=== PATIENT | female | born 1990 | race Caucasian/White ===

== ENCOUNTER 2016-12-25 18:33 | Emergency (ER) | payer SELFPAY ==
[~2016-12-25] VITALS: Ht 154.9 cm; Wt 85.8 kg
[~2016-12-25 18:33] MED LIST: FRRS300 PO; MTR600X PO; PRENTAB26 PO
[2016-12-25 18:37] VITALS: BP 156/90; TEMP 37.1; Ht 154.9 cm; Wt 85.8 kg
[2016-12-25] MEDS ORDERED: IBUPROFEN 600 MG TAB PO STA (18:44)
[2016-12-25] MEDS ORDERED: HYDROCODONE/ACETAMOPHEN 5/325MG TAB PO STA (18:44)
--- NOTE | 2016-12-25 19:10 | DIAGNOSTIC IMAGING REPORT ---
LEFT FOREARM 2 VIEWS CLINICAL HISTORY: Mid forearm injury. FINDINGS: AP and lateral views of the left forearm are obtained. No prior studies are available for comparison at the time of dictation. The skeletal structures are well mineralized. No fracture is seen. The elbow and wrist joints are grossly maintained. Mild dorsal soft tissue edema is noted. IMPRESSION: Mild soft tissue edema with no fracture seen in the left forearm. Electronically signed by: Iker Lee M.D. 12/25/2016 7:09 PM Dictated Date/Time: 12/25/2016 7:08 PM
--- NOTE | 2016-12-25 19:16 | EMERGENCY ROOM VISIT NOTE ---
ED Visit Note First contact with patient: 18:39 CHIEF COMPLAINT: Left Forearm injury today HISTORY OF PRESENT ILLNESS: This 26-year-old female patient presents the ER with chief complaint of left forearm injury. The patient states that her shoes were wet and slipped down 2 steps and fell injuring her left forearm. There was no loss of consciousness. The patient denies any head injury. Her only concern is her left forearm. There is no numbness of the hand or weakness of the fingers. The pain is constant and moderate in severity. ROS:6 system review was performed and was negative unless stated otherwise in history of present illness. PMH: The patient is healthy; appendectomy, SVT SOCIAL HISTORY: Patient lives with her boyfriend. The patient denies any tobacco or alcohol use. PHYSICAL EXAM: Vital Signs: Were reviewed Reviewed Nurse's notes. GEN.: 26-year -old white female appears uncomfortable secondary to left forearm pain. MENTAL Status: Alert and oriented 3. LEFT FOREARM: No gross bony deformity noted. The patient is tender to palpation over the the mid forearm region. She has full range of motion of the elbow. Limited range of motion of the wrist secondary to mid forearm pain. She is able to move her fingers without difficulty. The skin is intact. Flexion and extension of the fingers is intact. The fingers are warm and well perfused. The patient is right-hand dominant. EMERGENCY DEPARTMENT COURSE: The patient was evaluated. The patient was given [place] 5/325 mg one tablet by mouth for pain and ibuprofen 600 mg by mouth for pain. X-ray of the left forearm was ordered and interpreted by the radiologist and myself. DIAGNOSTICS:LEFT FOREARM 2 VIEWS CLINICAL HISTORY: Mid forearm injury. FINDINGS: AP and lateral views of the left forearm are obtained. No prior studies are available for comparison at the time of dictation. The skeletal structures are well mineralized. No fracture is seen. The elbow and wrist joints are grossly maintained. Mild dorsal soft tissue edema is noted. IMPRESSION: Mild soft tissue edema with no fracture seen in the left forearm. Electronically signed by: Iker Lee M.D. 12/25/2016 7:09 PM Dictated Date/Time: 12/25/2016 7:08 PM The patient was informed of the findings. The patient was placed in an arm sling and discharged home in stable condition. DIAGNOSIS: Left forearm contusion DISCHARGE INSTRUCTIONS AND TREATMENT: Ice intermittently over the next 24 hours. Ibuprofen 600 mg every 6 hours with food for pain. Keep arm in sling until pain is tolerable without it. If symptoms persist or worsen, follow her family doctor. Problem List Medical Problems: (1) Paroxysmal supraventricular tachycardia Status: Chronic Current/Historical Medications Scheduled Ferrous Sulfate (Ferrous Sulfate), 325 MG PO DAILY Multivit/Min/Iron/Fol Ac/Pren ( Vitamin), 1 TAB PO DAILY Scheduled PRN Ibuprofen (Ibuprofen), 600 MG PO Q4H PRN for PAIN, COLÓN, CRAMPING OR FEVER Allergies Coded Allergies: No Known Allergies (Unverified , 12/25/16) Vital Signs Date Time Temp Pulse Resp B/P Pulse Ox O2 Delivery O2 Flow Rate FiO2 12/25/16 18:37 37.1 105 18 156/90 98 Room Air Medications Administered Medications (Trade) Dose Ordered Sig/Marianna Route Start Time Stop Time Status Last Admin Dose Admin Acetaminophen/ Hydrocodone Bitart ([place] 5/325 Tab) 1 tab NOW STAT PO 12/25/16 18:44 12/25/16 18:51 DC 12/25/16 18:57 1 TAB Ibuprofen (Motrin Tab) 600 mg NOW STAT PO 12/25/16 18:44 12/25/16 18:51 DC 12/25/16 18:57 600 MG Departure Information Patient Instructions [facility]
[2016-12-25 19:25] VITALS: PULSE 89; O2SAT 98
[2016-12-25] MEDS ORDERED: DPPRI400 INJ (21:51)
[2016-12-25] MEDS ORDERED: BUPR-79 PO (21:52)
[2016-12-25] MEDS ORDERED: MELO15TA4 PO (21:53)
[2016-12-25] MEDS ORDERED: PROP60CA5 PO (21:53)
== END 2016-12-25 19:27 | disposition home or self-care (01) ==
LOC: C.EDB 18:34 → C.EDD 19:27
DX: S50.12XA Contusion of left forearm, initial encounter (principal); W10.9XXA Fall (on) (from) unspecified stairs and steps, initial encounter

== ENCOUNTER 2017-07-04 20:59 | Emergency (ER) | payer OTHER ==
[~2017-07-04] VITALS: Ht 157.5 cm; Wt 88.5 kg
[~2017-07-04 20:59] MED LIST changes: +BUPR-79 PO; +DPPRI400 INJ; -FRRS300 PO; +MELO15TA4 PO; -MTR600X PO; -PRENTAB26 PO; +PROP60CA5 PO
[2017-07-04 21:05] VITALS: TEMP 36.7; Ht 157.5 cm; Wt 88.5 kg
[2017-07-04] MEDS ORDERED: BUPR150T5 PO (21:30)
[2017-07-04] MEDS ORDERED: BCPILLS PO (21:30)
[2017-07-04] MEDS ORDERED: INDSR/60 PO (21:30)
[2017-07-04] MEDS ORDERED: NAPR1TAB9 PO (21:30)
[2017-07-04] MEDS ORDERED: PROMETHAZINE HCL INJ 25 MG/ML 1 ML VIAL IM STA (21:47)
[2017-07-04] MEDS ORDERED: SUMATRIPTAN SUCCINATE 6 MG/0.5 ML VIAL SQ STA (21:47)
[2017-07-04] MEDS ORDERED: KETOROLAC TROMETHAMINE 60 MG/2 ML VIAL IM STA (21:47)
[2017-07-04 22:01] VITALS: BP 122/68; PULSE 75; O2SAT 99
--- NOTE | 2017-07-05 00:42 | EMERGENCY ROOM VISIT NOTE ---
History First contact with patient: 21:34 Chief Complaint: HEAD PAIN Stated Complaint: SEVERE MIRGRAINE History of Present Illness The patient is a 27 year old female who presents to the Emergency Room with complaints of migraine headache symptoms that have been worsening over the past one day. The patient has a history of migraine headaches, and she states that she will have 1 every few months. She usually does well with Imitrex at home, however she ran out of the medication and did not get it refilled. The patient does not have fever or chills. No numbness or paresthesias. This does feel similar to her normal back migraines and rates her discomfort a 9/10. This is not the worst headache of her life. Review of Systems More than 10 systems were reviewed and otherwise negative with the exception of history of present illness. Past Medical/Surgical History Medical Problems: (1) Paroxysmal supraventricular tachycardia Family History No pertinent family history Social History Smoking Status: Former Smoker Marital Status: single Occupation Status: employed Current/Historical Medications Scheduled Control Pills ( Control Pills), 1 TAB PO DAILY Bupropion Hcl (Bupropion Hcl Xl), 150 MG PO DAILY Propranolol Hcl (Propranolol ER), 60 MG PO DAILY Scheduled PRN Naproxen (Aleve), 220 MG PO UD PRN for Pain Physical Exam Vital Signs Date Time Temp Pulse Resp B/P (MAP) Pulse Ox O2 Delivery O2 Flow Rate FiO2 07/04/17 22:01 75 18 122/68 99 07/04/17 21:05 36.7 78 18 138/82 99 Room Air Pain Rating (0-10): 6.0 Physical Exam VITALS: Vitals are noted on the nurse's note and reviewed by myself. Vital signs stable. GENERAL: Well-developed, well-nourished, white female, who is in no acute distress and resting comfortably. Patient is cooperative with the examination. NECK: Supple without nuchal rigidity. No lymphadenopathy. No thyromegaly. Cervical spine is nontender. No meningismus HEART: Regular rate and rhythm without murmurs gallops or rubs. LUNGS: Clear to auscultation bilaterally without wheezes, rales or rhonchi. No retractions or accessory muscle use. ABDOMEN: Positive normal bowel sounds x 4. Soft, nontender, without masses or organomegaly. No guarding or rebound tenderness. MUSCULOSKELETAL: No muscle atrophy, erythema, or edema noted. Full range of motion without joint tenderness in all extremities. NEURO: Patient was alert and oriented to person place and time. CN II through XII grossly intact. Deep tendon reflexes 2+ throughout. Medical Decision & Procedures Medications Administered Medications (Trade) Dose Ordered Sig/Marianna Route Start Time Stop Time Status Last Admin Dose Admin Promethazine HCl (Phenergan Inj) 25 mg NOW STAT IM 07/04/17 21:47 07/04/17 21:48 DC 07/04/17 21:56 25 MG Ketorolac Tromethamine (Toradol Inj) 60 mg NOW STAT IM 07/04/17 21:47 07/04/17 21:48 DC 07/04/17 21:56 60 MG Sumatriptan Succinate (Imitrex Sq Inj) 6 mg NOW STAT SQ 07/04/17 21:47 07/04/17 21:48 DC 07/04/17 21:55 6 MG ED Course Physical exam and history were performed. Nursing notes, EMR, and Medication List were personally reviewed. Patient appears to have a headache for the past one day. Evidently this is similar to previous headaches. The patient does not appear toxic on examination and certainly does not have evidence of meningitis or encephalitis. I discussed options of care with the patient. She was given 60 mg IM Toradol and 25 mg IM Phenergan. The patient was also given 6 mg subcutaneous Imitrex. The patient was monitored for some time and did have significant improvement of her symptoms. She does appear well for discharge home. She was asked to follow with her primary care physician and was otherwise invited back to the ER with new, worsening, or concerning symptoms. The chart was completed utilizing [employer] Speech Voice Recognition Software. Grammatical errors, random word insertions, pronoun errors, and incomplete sentences are an occasional consequence of this system due to software limitations, ambient noise, and hardware issues. Any formal questions or concerns about the content, text, or information contained within the body of this dictation should be directly addressed to the provider for clarification. . Medical Decision The differential diagnosis includes, but is not limited to: acute intracranial bleed, meningitis, encephalitis, mass or mass effect, sinusitis, infection, tumor, headache, temporal arteritis and carbon monoxide exposure, and migraine. Impression Primary Impression: Headache Departure Information Dispostion Home / Self-Care Condition GOOD Forms HOME CARE DOCUMENTATION FORM, IMPORTANT VISIT INFORMATION Patient Instructions [facility] Additional Instructions You were seen and evaluated today on an emergency basis only. This is not a substitute for, or an effort to provide, complete comprehensive medical care. It is not possible to recognize and treat all injuries or illnesses in a single emergency department visit. For this reason it is recommended that you followup with your primary care physician or neurologist this week for ongoing care and evaluation. DO NOT drive, drink alcohol, operate machinery, or perform dangerous activities today. You were given medications in the ER that can affect your ability to safely function or operate a vehicle. Rest today in a quiet, peaceful, dark environment and get a full 8-10 hrs of sleep tonight. Avoid loud noises, smoke/smoking, alcohol, bright lights, stress, or physical exertion today to minimize the chance the headache may return. Continue current medications. Ibuprofen(Motrin, Advil) may be used for fever or pain. Use 600mg every six hours as needed. Take with food. Avoid using more than 2400mg in a 24 hour period. Do not use 2400mg per day for more than three consecutive days without physician direction. Prolonged inappropriate use can lead to stomach upset or ulcers. (AND/OR) Acetaminophen(Tylenol) may be used for fever or pain. Use 1000mg every six hours as needed. Avoid using more than 4000mg in a 24 hour period. Return to the ER for passing out, worsening headache, vision problems, neck stiffness/pain, fevers, vomiting, worsening of your condition, or as needed.
== END 2017-07-04 22:05 | disposition home or self-care (01) ==
LOC: C.EDB 21:02 → C.EDD 22:05
DX: R51 Headache (principal); I47.1 Supraventricular tachycardia; Z87.891 Personal history of nicotine dependence; Z79.3 Long term (current) use of hormonal contraceptives; Z79.899 Other long term (current) drug therapy

== ENCOUNTER 2018-03-09 15:00 | Emergency (ER) | payer OTHER ==
[~2018-03-09] VITALS: Ht 157.5 cm; Wt 88.3 kg
[2018-03-09 15:02] VITALS: Ht 157.5 cm; Wt 88.3 kg
--- NOTE | 2018-03-09 15:30 | EMERGENCY ROOM VISIT NOTE ---
History First contact with patient: 15:05 Chief Complaint: FOOT PAIN Stated Complaint: PAIN,TENDERNESS, TINGLING IN RIGHT FOOT INTO HEEL History of Present Illness The patient is a 27 year old female who presents to the Emergency Room with complaints of right foot pain. The patient states that she first heard a popping sensation in her foot 1 month ago when she was on the elliptical. She states that it was feeling better, until she got on the elliptical again 2 weeks ago and felt the same sensation. She also states that approximately 1.5 weeks ago, she slipped and hit her foot off of a wooden table. She has had gradually increasing pain since then. She states the pain is constant but worsens after walking or with activity. She reports a tingling sensation when sitting and states that her pain is a sharp, stabbing sensation which radiates into the calf. She rates her discomfort an 8/10. She denies any previous injuries to this foot, but does report a history of previous right ankle injuries. Review of Systems A 6 point review of systems was reviewed with the patient with pertinent positives and negatives as per history of present illness. All else were negative. Past Medical/Surgical History Medical Problems: (1) Paroxysmal supraventricular tachycardia Social History Smoking Status: Former Smoker Marital Status: single Occupation Status: employed Current/Historical Medications Scheduled Control Pills ( Control Pills), 1 TAB PO DAILY Bupropion Hcl (Bupropion Hcl Xl), 150 MG PO DAILY Meloxicam (Mobic), 15 MG PO DAILY Propranolol Hcl (Propranolol ER), 60 MG PO DAILY Scheduled PRN Naproxen (Aleve), 220 MG PO UD PRN for Pain Physical Exam Vital Signs Date Time Temp Pulse Resp B/P (MAP) Pulse Ox O2 Delivery O2 Flow Rate FiO2 03/09/18 16:10 36.9 70 17 166/95 100 03/09/18 15:02 36.9 70 17 166/95 100 Physical Exam VITALS: Vitals are noted on the nurse's note and reviewed by myself. Vital signs stable. GENERAL: This is a 27-year-old female, in no acute distress, nondiaphoretic, well-developed well-nourished. SKIN: There are no lacerations or abrasions. MUSCULOSKELETAL: No obvious edema of the right foot. There is tenderness to palpation to the lateral aspect of the right foot along the distal fifth metatarsal. No tenderness of the ankle or calf. Patient is able to move all toes. Dorsalis pedis pulse 2+. Capillary refill within 2 seconds. NEURO: Patient was alert and oriented to person place and time. Distal sensation intact. Medical Decision & Procedures ER Provider Diagnostic Interpretation: R FOOT MIN 3 VIEWS ROUTINE CLINICAL HISTORY: Right foot pain COMPARISON: None. DISCUSSION: No fractures or dislocations are visualized. There are no erosive or destructive changes. There is equivocal mild dorsal soft tissue swelling. There is a third metatarsal head bone island. IMPRESSION: No significant bony abnormalities identified. Medical Decision Differential diagnosis includes fracture, contusion, sprain, plantar fasciitis, arthritis, among others. The patient was evaluated as above. X-ray of the right foot was obtained and read by radiology with no acute findings. Patient was placed in a postoperative shoe. She was given information for orthopedic follow-up. Conservative measures were discussed with the patient. She verbalized understanding of my assessment and treatment plan and was discharged home in good condition. Medication Reconcilliation Current Medication List: was personally reviewed by me Blood Pressure Screening Patient's blood pressure: Elevated blood pressure Impression Primary Impression: Foot pain Departure Information Dispostion Home / Self-Care Condition GOOD Referrals Roberto Baron M.D. (PCP) Bran Mattson MD Patient Instructions [facility] Additional Instructions You have been treated in the Emergency Department for a foot injury. For pain control, you can use the following bwse-lth-caprqxr medicines (if >12 yo): - Regular strength (325mg/tab) Tylenol (acetaminophen) 2 tabs every 4-6 hours as needed. Do not exceed 12 tablets in a 24 hour period. Avoid taking more than 4 grams (4000 mg) of Tylenol per day. This includes any other sources of acetaminophen you may take on a regular basis. - Regular strength (200 mg/tab) Advil (ibuprofen) 1-2 tabs every 4-6 hours as needed. Do not exceed a dose of 3200 mg per day. If this is a recent injury (<24 hrs), ice can be applied to the area of pain for the first 3 days to help decrease pain and inflammation. Wear the postoperative shoe for the next 1-2 weeks or as needed for pain/ difficulty walking. Follow-up with orthopedics if you do not have improvement of your pain. Return to the Emergency Department if your current symptoms worsen despite treatment course outlined above, or if you develop any of the following symptoms : intractable pain despite aforementioned treatment course or new onset of numbness or tingling of the foot. Problem Qualifiers Primary Impression: Foot pain Laterality: right Qualified Codes: M79.671 - Pain in right foot
--- NOTE | 2018-03-09 15:42 | DIAGNOSTIC IMAGING REPORT ---
R FOOT MIN 3 VIEWS ROUTINE CLINICAL HISTORY: Right foot pain COMPARISON: None. DISCUSSION: No fractures or dislocations are visualized. There are no erosive or destructive changes. There is equivocal mild dorsal soft tissue swelling. There is a third metatarsal head bone island. IMPRESSION: No significant bony abnormalities identified. Electronically signed by: Chris Brown M.D. 03/09/2018 3:40 PM Dictated Date/Time: 03/09/2018 3:39 PM
[2018-03-09] MEDS ORDERED: MELO-84 PO (15:45)
[2018-03-09 16:10] VITALS: BP 166/95; PULSE 70; TEMP 36.9; O2SAT 100
[2018-03-09] MEDS ORDERED: NAPR1TAB9 PO (21:30)
[2018-03-09] MEDS ORDERED: INDSR/60 PO (21:30)
[2018-03-09] MEDS ORDERED: BCPILLS PO (21:30)
[2018-03-09] MEDS ORDERED: BUPR150T5 PO (21:30)
== END 2018-03-09 16:11 | disposition home or self-care (01) ==
LOC: C.EDB 15:01 → C.EDD 16:11
DX: M79.671 Pain in right foot (principal); Z87.891 Personal history of nicotine dependence

== ENCOUNTER 2025-04-14 21:47 | Inpatient (IN) ==
[2025-04-14] MEDS ORDERED: LIDOCAINE 1% LOCAL 20 ML VIAL INFIL PRN (22:41)
--- NOTE | 2025-04-14 22:46 | Obstetrical Progress Note ---
Date of Service April 14, 2025 Assessment & Plan (1) : Plan: Pt is a 34yo at 38 + weeks. Presents to labor and delivery with complaints of contractions since 8:00 PM. course is reviewed FHR ; CAT1 CTx; 2-4min VE; 3/50/-1 with bulging membranes Plan Admit and anticipate VD Results & Data Vital Signs (Past 12 Hours) Vital Signs Temp Pulse Resp BP 04/14/25 22:09 74 130/81 04/14/25 22:06 36.8 C 18
[2025-04-14 23:28] LABS: Hematocrit (blood only) 32.3 % (37.0-47.0); Hemoglobin 10.9 g/dl (12.0-16.0); Mean Corpuscular Hemoglobin 30.1 pg (25.0-34.0); Mean Corpuscular Hgb Conc 33.7 g/dL (32.0-36.0); Mean Corpuscular Volume 89.2 fL (80.0-100.0); Mean Platelet Volume 11.6 fL (9.4-12.4); Platelet Count 228 K/uL (130-400); RDW Standard Deviation 45.8 fL (36.4-46.3); Red Blood Count 3.62 M/uL (4.20-5.40); White Blood Count 10.99 K/ul (4.8-10.8)
[2025-04-14] MEDS: LACTATED RINGER'S 1,000 ML IV PRN (23:30)
[2025-04-14] MEDS ORDERED: ROPIVACAINE 0.5% PF 5 MG/ML 20 ML VIAL EPI PRN (23:40)
[2025-04-14] MEDS ORDERED: NALOXONE HCL 1 MG in SODIUM CHLORIDE 0.9% 1,000 ML IV PRN (23:40)
[2025-04-14] MEDS ORDERED: ONDANSETRON INJ 2 MG/ML 2 ML VIAL IV PRN (23:40)
[2025-04-14] MEDS ORDERED: LIDOCAINE 2% MPF LOCAL 5 ML VIAL EPI PRN (23:40)
[2025-04-14] MEDS ORDERED: BUPIVACAINE 0.25% PF 30 ML VIAL EPI PRN (23:40)
[2025-04-14] MEDS ORDERED: SODIUM CHLORIDE 0.9% PF INJ 10 ML VIAL EPI PRN (23:40)
[2025-04-14] MEDS ORDERED: NALOXONE HCL 0.4 MG/1 ML VIAL/CARP IV PRN (23:40)
[2025-04-14] MEDS ORDERED: NALBUPHINE HCL INJ 10 MG/ML AMP IV PRN (23:40)
[2025-04-14] MEDS ORDERED: ePHEDrine sulfate 50 MG/ML AMP IV PRN (23:40)
[2025-04-14] MEDS ORDERED: diphenhydrAMINE 50 MG/ML VIAL IV PRN (23:40)
[2025-04-14] MEDS ORDERED: fentaNYL citrate PF 100 MCG/2 ML VIAL EPI PRN (23:40)
--- NOTE | 2025-04-14 23:43 | Anesthesiology Consultation ---
Date of Service April 14, 2025 Assessment & Plan (1) Encounter for pre-operative examination: Chart Review Chart Review: Patient NOT seen in Pre Admission Testing and Acceptable Risk for Labor Epidural Consults Requested none History Height/Weight Height: 5 ft 2 in Weight: 91.172 kg Allergies Allergy/AdvReac Type Severity Reaction Status Date / Time No Known Allergies Allergy Unverified 02/02/25 09:22 Medications Home Medications Medication Instructions Recorded Confirmed Last Taken propranolol 120 mg capsule,24 120 mg PO DAILY 05/16/21 04/14/25 04/13/25 hr,extended release vit no.133-ferrous 1 tab PO HS 01/26/25 04/14/25 04/13/25 fumarate 28 mg-folic acid 800 mcg tablet () sertraline 100 mg tablet 100 mg PO HS 01/26/25 04/14/25 04/13/25 Social History Smoking Status: Never smoker Hx Alcohol Use: No Hx Substance Use: No Physical Exam Vital Signs Last Vital Signs Temp 98.2 F 04/14/25 22:06 Pulse 72 04/14/25 23:40 Resp 18 04/14/25 22:06 BP 130/81 04/14/25 22:09 Pulse Ox 97 04/14/25 23:40 Testing Laboratory Results 04/14/25 22:53
[2025-04-15] MEDS: LIDOCAINE 2%/EPINEPHRINE 1:200,000 20 ML PF EPI STA (00:05)
[2025-04-15] MEDS: BUPIVACAINE 0.25% PF 30 ML VIAL EPI STA (00:05)
[2025-04-15] MEDS: fentANYL 2 MCG/ML BUPIVacaine 0.125%-NSS 100ML BAG EPI PRN (00:06)
--- NOTE | 2025-04-15 01:29 | Obstetrical Progress Note ---
Date of Service April 15, 2025 Assessment & Plan (1) : Plan: Pt doing well Epidural analgesia in place FHR; CAT1 Ctx; 1-2 VE; 10/100/+1 AROM- clear Admission and Anticipated Discharge Date Admission Date: April 14, 2025 Results & Data Vital Signs (Past 12 Hours) Vital Signs Temp Pulse Resp BP Pulse Ox 04/15/25 01:25 78 96 04/15/25 01:20 90 163/88 H 96 04/15/25 01:17 83 94 04/15/25 01:15 89 97 04/15/25 01:10 83 97 04/15/25 01:05 88 131/82 96 04/15/25 01:00 79 96 04/15/25 00:59 88 94 04/15/25 00:55 84 95 04/15/25 00:51 68 141/78 H 04/15/25 00:50 86 95 04/15/25 00:45 82 94 04/15/25 00:44 85 94 04/15/25 00:40 76 95 04/15/25 00:35 72 137/84 97 04/15/25 00:30 77 95 04/15/25 00:25 79 18 96 04/15/25 00:20 77 18 96 04/15/25 00:17 71 146/85 H 04/15/25 00:15 36.8 C 75 18 148/84 H 97 04/15/25 00:13 75 139/74 04/15/25 00:11 78 136/74 04/15/25 00:10 70 18 96 04/15/25 00:09 70 137/71 04/15/25 00:07 64 144/82 H 04/15/25 00:05 69 18 145/79 H 96 04/15/25 00:00 70 97 04/14/25 23:55 97 04/14/25 23:55 81 04/14/25 23:50 97 04/14/25 23:50 76 04/14/25 23:45 99 04/14/25 23:45 74 04/14/25 23:40 97 04/14/25 23:40 72 04/14/25 23:35 98 04/14/25 23:35 67 04/14/25 22:09 74 130/81 04/14/25 22:06 36.8 C 18
[2025-04-15] MEDS: OXYTOCIN 30 UNITS/NSS 30 UNITS/500 ML BAG IV PRN (01:52)
[2025-04-15] MEDS: miSOPROStoL 200 MCG TAB ONE (01:58)
[2025-04-15] MEDS ORDERED: HYDROCORTISONE ACETATE 25 MG SUPP PR PRN (02:03)
[2025-04-15] MEDS ORDERED: bisacodyL 10 MG SUPP PR PRN (02:03)
[2025-04-15] MEDS ORDERED: OXYTOCIN 30 UNITS/NSS 30 UNITS/500 ML BAG IV PRN (02:03)
[2025-04-15] MEDS ORDERED: DIPHTHER/TETAN/PERTUS Vaccine (Tdap, Adol/Adult) 0.5mL IM ONE (02:03)
--- NOTE | 2025-04-15 02:06 | Delivery Summary ---
Vaginal Delivery Summary Date of Service April 15DELIVERY NOTE Patient delivered a live male in left occiput anterior presentation there was 1 nuchal cord which was easily reduced. was delivered and placed on mother's abdomen. Delayed cord clamping was performed. Cord blood is obtained Cord gasses are not obtained Meconium is absent Placenta is spontaneously delivered. Placenta appears grossly normal and has 3 vessel cord Inspection of the perineum showed a first degree midline laceration. Laceration is repaired in layers with 2-0 Vicryl Rectal exam post repair showed good sphincter tone no sutures palpated in the rectum. Quantitative blood loss is 100 cc per Infants weight and scores are in the pediatric record Mother and baby are stable in in the recovery
[2025-04-15] MEDS: fentaNYL citrate PF 100 MCG/2 ML VIAL ONE (02:45)
[2025-04-15] MEDS: ePHEDrine sulfate 50 MG/ML AMP ONE (02:45)
[2025-04-15] MEDS: SODIUM CHLORIDE 0.9% PF INJ 10 ML VIAL ONE (02:46)
[2025-04-15] MEDS: fentaNYL citrate PF 100 MCG/2 ML VIAL EPI STA (02:46)
[2025-04-15] MEDS: LIDOCAINE 2%/EPINEPHRINE 1:200,000 20 ML PF ONE (02:46)
[2025-04-15] MEDS: BUPIVACAINE 0.25% PF 30 ML VIAL ONE (02:46)
[2025-04-15] MEDS: fentANYL 2 MCG/ML BUPIVacaine 0.125%-NSS 100ML BAG ONE (02:46)
[2025-04-15] MEDS: SODIUM CHLORIDE 0.9% PF INJ 10 ML VIAL EPI STA (02:47)
[2025-04-15] MEDS: miSOPROStoL 200 MCG TAB PR ONE (07:23)
[2025-04-15] MEDS: BENZOCAINE 20% SPRY 85 APPLN/85 GM CAN EXT PRN (08:23)
[2025-04-15] MEDS: PRENATAL VITAMIN 1 TAB PO SCH (08:24)
[2025-04-15] MEDS: DOCUSATE SODIUM 100 MG CAP PO SCH (08:24)
[2025-04-15] MEDS: ACETAMINOPHEN 325 MG TAB PO PRN (13:43)
[2025-04-15] MEDS: IBUPROFEN 600 MG TAB PO PRN (13:43)
[2025-04-15] MEDS: PROPRANOLOL HCL 60 MG LA CAP PO SCH (21:15)
[2025-04-15] MEDS: SERTRALINE HCL 100 MG TABLET PO SCH (21:15)
[2025-04-16 00:34] VITALS: RESP 16
[2025-04-16 06:27] LABS: Hemoglobin 10.7 g/dl (12.0-16.0); Mean Corpuscular Hemoglobin 28.8 pg (25.0-34.0); Mean Corpuscular Hgb Conc 31.5 g/dL (32.0-36.0); Mean Corpuscular Volume 91.6 fL (80.0-100.0); Platelet Count 204 K/uL (130-400); Red Blood Count 3.71 M/uL (4.20-5.40); White Blood Count 10.74 K/ul (4.8-10.8)
[2025-04-16 08:10] VITALS: BP 131/88; PULSE 61; TEMP 98.4; O2SAT 100
--- NOTE | 2025-04-16 09:00 | Obstetrical Progress Note ---
Date of Service April 16, 2025 Assessment & Plan (1) Normal course: Plan continue routine course Regular diet encourage ambulation discharge plan for tomorrow Admission and Anticipated Discharge Date Admission Date: April 14, 2025 Review of Systems Review of Systems: All systems reviewed & are unremarkable except as noted in HPI & below Constitutional: as per Subjective / HPI Respiratory: as per Subjective / HPI Cardiovascular: as per Subjective / HPI Gastrointestinal: as per Subjective / HPI Physical Exam Constitutional: WD/WN, vitals as above Respiratory: normal respiratory effort, lungs clear to auscultation Cardiovascular: RRR, no murmur, no edema Gastrointestinal (Abdomen): normal bowel sounds, soft, nontender, no hepatosplenomegaly Skin: no rashes, warm and dry Psychiatric: A+Ox3, euthymic affect Genitourinary: pelvic exam; Deferred Results & Data Vital Signs (Past 12 Hours) Vital Signs Temp Pulse Resp BP Pulse Ox O2 Del Method 04/16/25 08:02 36.9 C 61 16 131/88 100 Room Air 04/16/25 03:40 36.5 C 67 16 125/84 97 Room Air 04/16/25 00:15 36.6 C 61 16 126/81 97 Room Air 04/15/25 21:00 36.5 C 67 18 124/86 98 Room Air
--- NOTE | 2025-04-16 09:45 | Discharge Summary ---
Date of Service April 16, 2025 Hospital Course (1) Vaginal delivery: Plan Discharge home instructions reviewed Continue Feso4, Vitamins follow up in 3 weeks and 6 weeks for visit Discharge Instructions ACTIVITY RECOMMENDATIONS: * Gradual return to full activity over the next 2-3 weeks. * No lifting - nothing heavier than baby over the next 2-3 weeks. * Do not engage in vigorous exercise, sexual activity or sports until cleared by your physician. * Do not drive or operate any motorized equipment until cleared by your physician. * You may shower/bathe daily. BREAST CARE: If you are not breast feeding: * Wear a supportive bra 24 hours a day for one to two weeks. * Avoid stimulating your breasts and nipples as much as possible during the first few weeks after delivery. * When taking a shower, have the warm water hit your back, not breasts. * When your breasts feel full, apply ice packs. Usually three to four times a day helps ease the discomfort. * Take a mild pain medication (Tylenol/Motrin) when you are uncomfortable. If breast feeding: * Use breast milk to lubricate nipples. Lansinoh cream may be used for sore nipples. You do not need to remove cream prior to breast feeding. If using a different brand of cream, check the label for directions regarding removal of cream prior to nursing. * Wear a supportive bra. * If having problems with breasts or breast feeding, call a qa consultant or your health care provider. EPISIOTOMY CARE: After delivery, if you have an episiotomy (stitches), the following steps will ease discomfort and aid healing. * For the first 24 hours after delivery, place ice packs next to your episiotomy to help reduce swelling. * After the first 24 hour-period, sitz baths, either portable or in the tub, are suggested. A shower with a shower arm sprayed over the episiotomy may be comforting. * Ash[place] care should be done after each voiding and bowel movement. Squirt warm water from a plastic bottle over the perineum (region of the body between the anus and urinary opening) and pat dry. * Use Dermoplast to ease discomfort. Shake container. Blossom directly over the episiotomy. * Place a Tucks on a clean sanitary pad next to your episiotomy. OVER THE COUNTER MEDICATION: * For discomfort or pain, you may use Acetaminophen (Tylenol), Ibuprofen (Advil), or Naproxen (Aleve) following the package directions. * For constipation you may use Colace following the package directions. SPECIAL CARE INSTRUCTIONS: When you are discharged from the hospital, it is important for you to follow the instructions listed below: * During the first week at home, you should be able to care for yourself and your baby. In addition, the usual light household activities are encouraged. * Limit your activities to the way you feel. Do not try to clean the house or move furniture. Be sensible. * If you actively engage in sports and have done so up until the time of your delivery, you may resume these activities as soon as you feel able. This may take up to one month or even longer. Use good judgment. * Continue to take your vitamins for at least six weeks after the of your baby. * Your diet need not be limited unless you were on a special diet before your delivery. Breast-feeding mothers need around 2500 calories per day and at least 64-80 ounces of fluid per day (8 to 10 glasses). * You should eat foods from the four major food groups. Crash diets or fad diets are to be avoided. Eating lean meats, fresh fruits and vegetables, low-fat dairy products, high fiber foods and a regular exercise program, will help you get back to your pre- weight without putting your health at risk. * Constipation is sometimes a problem after delivery. Take a mild laxative as needed. If breast feeding, Milk of Magnesia is acceptable to use. You may use a suppository or Fleets enema if no episiotomy. * A daily shower or tub bath is suggested. Be sure to thoroughly and gently dry the perineum. * A bloody vaginal discharge will usually continue until around four weeks post . A small amount of bleeding may continue for as long as six weeks. Vaginal discharge changes from the bright red bleeding after delivery to pink then brownish and finally yellowish-pink before becoming white and disappearing. * Bleeding may increase with activity. Your first period may come in 4-8 weeks. If you are breast feeding, your period may be delayed even longer. * [place] (sex) can begin whenever both you and your partner feel c omfortable and do not have any form of genital infection. It is recommended that you wait until after your return appointment and discuss with your physician. If you have questions, please talk to your health care practitioner. A condom should be used to prevent infection and . * Foreplay, gentle intercourse and lubrication is very important the first several times to prevent pain. A water-based lubricant such as K-Y jelly or Astroglide may be used. * Tampons may be used six weeks after delivery. * Douching should be avoided for 6 weeks after delivery. * If you have RH negative blood and your baby is RH positive, you will receive RHOGAM by injection prior to discharge. The nurse will give you a card to keep with you that has the date and place that you received RHOGAM after delivery. * During your care, you had a Rubella screen done to check for the presence of rubella antibodies in your blood. If your test was negative, you will receive a Rubella vaccine prior to discharge. This vaccine may cause a fever, soreness at the injection site and flu-like symptoms. If these symptoms persist, notify your health care practitioner. is not advised for three months after a Rubella vaccine. There is a higher chance of having a baby with defects if conceived within three months of getting the vaccine. * If you were discharged 24 hours from delivery or before 48 hours: Visiting nurses will come to your home 48 hours after discharge to assess you and your baby. The visiting nurse will meet with you while you are in the hospital to arrange a time and get directions to your home. * Verbalizes understanding of car seat law as reviewed with patient nursing. * Car Seat hand-out given and reviewed with patient by nursing. * Shaken baby information reviewed with patient by nursing. Call you doctor if: * Heavy bleeding (saturating several pads an hour) or passing clots the size of your fist. * A fever >101 degrees F (38.3 degrees C) on two occasions four hours apart and/or chills. * Unusual pain in the pelvic or vaginal areas. * "Baby Blues" lasting longer than two weeks. If you have any questions or concerns, call your health care practitioner at . FOLLOW-UP VISIT: * Please call the office at to schedule 3 and 6 week examination. It is important you keep this appointment. * It is important for you to make arrangements for either yearly or twice yearly check-ups thereafter.
[2025-04-16] MEDS ORDERED: bisacodyL 5 MG TABEC PO SCH (20:00)
--- NOTE | 2025-04-18 07:06 | Anesthesia Procedure Note ---
Date of Service April 16, 2025 Anesthesia Post Epidural Note Vital Signs Vital Signs: Temp Pulse Resp BP Pulse Ox O2 Del Method 98.4 F 61 16 131/88 100 Room Air 04/16/25 12:07 04/16/25 12:07 04/16/25 12:07 04/16/25 12:07 04/16/25 12:07 04/16/25 08:02 Notes Mental Status: alert / awake / arousable and participated in evaluation Nausea / Vomiting: adequately controlled Pain: adequately controlled Airway Patency, RR, SpO2: stable & adequate BP & HR: stable & adequate Hydration State: stable & adequate Neuraxial Anesthesia: was administered and sensory block is resolving Anesthetic Complications: no major complications apparent and Pt Satisfied with anesthetic care Epidural: Removed without complications and With tip intact
== END 2025-04-16 14:40 | disposition home or self-care (01) | DRG 807 ==
LOC: OPB 21:47 → 4S1 21:48 → 4E2 04-15 04:39